=== PATIENT | male | born 1965 | race Caucasian/White ===

== ENCOUNTER 2019-10-31 21:56 | Emergency (ER) | payer MEDICAID, SELFPAY ==
[2019-10-31] VITALS (27 sets, daily range): BP systolic 124–245; BP diastolic 81–205; PULSE 113–149; RESP 13–44; O2SAT 58–88
--- NOTE | 2019-10-31 22:04 | DI.RAD_ITS ---
EXAM: XR PORTABLE CHEST AP INDICATION: CP/SOB. COMPARISON: No exams were available for comparison TECHNIQUE: 2D digital imaging was performed. FINDINGS: The heart size is within normal limits given the projection. There are bilateral diffuse interstitia l infiltrates present. No effusions or pneumothoraces are identified. The bones are unremarkable. IMPRESSION: Bilateral pulmonary infiltrates suggesting edema or infection.
[2019-10-31] MEDS: Furosemide 100 MG/10 ML VIAL 80 MG IVP (22:05)
[2019-10-31] MEDS: Albuterol 2.5 MG/3 ML INH SOLN VIAL (22:10)
[2019-10-31 22:12] LABS: Abs Immature Grans 0.03 k/cumm (0.0-0.09); Absolute Basophil Count 0.04 k/cumm (0.0-0.2); Absolute Eosinophil Count 0.41 k/cumm (0.0-0.7); Absolute Lymphocyte Count 2.83 k/cumm (1.2-3.4); Absolute Monocyte Count 0.87 k/cumm (0.11-0.7); Basophils % 0.4; Eosinophils % 3.8; HGB 13.5 g/dL (13.5-17.5); Immature Grans % 0.3 %; Lymphocytes % 26.5; Mean Corp. HGB Concentration 33.8 g/dL (32.0-36.0); Mean Corpuscular Hemoglobin 29.1 pg (27.0-33.0); Mean Corpuscular Volume 86.2 fL (80-95); Mean Platelet Volume 10.6 fL (8.0-11.0); Monocytes % 8.1; Neutrophils % 60.9; Platelet Count 196 x1000/uL (130-400); RBC 4.64 m/cumm (4.50-6.00); RBC Distribution Width 13.2 % (11.8-14.1); White Blood Cell Count 10.68 k/cumm (4.4-10.8)
--- NOTE | 2019-10-31 22:16 | DI.VRAD_ITS ---
PROCEDURE INFORMATION: Exam: XR Chest, 1 View Exam date and time: 10/31/2019 10:09 PM Age: 54 years old Clinical indication: Shortness of breath; Type not specified; Patient HX: SOB, severe chest pain TECHNIQUE: Imaging protocol: XR of the chest Views: 1 view. COMPARISON: No relevant prior studies available. FINDINGS: Lungs: Pulmonary infiltrates bilaterally suggesting edema or infection. Pleural space: Unremarkable. No pleural effusion. No pneumothorax. Heart/Mediastinum: Unremarkable. No cardiomegaly. Bones/joints: Unremarkable. IMPRESSION: Pulmonary infiltrates bilaterally suggesting edema or infection. Dictated and Authenticated by: Latia Melendez MD. Ordering:MATT Richardson MD
--- NOTE | 2019-10-31 22:19 | W.ED.GENAD ---
Discharge Plan Disposition Patient Disposition: [facility] Condition: Critical Discharge Details Chief Complaint: Chest Pain Clinical Impression: Flash pulmonary edema Primary Care Provider: James Juarez ED Provider: Dylan Parada Home Meds and New Rx's Prescriptions: No Action clindamycin HCl 150 MG capsule 450 mg PO DAILY Qty: 45 RF: 0 hydrochlorothiazide 12.5 MG tablet 12.5 mg PO DAILY RF: 0 clindamycin HCl 150 MG capsule 450 mg PO TID 7 Days RF: 0 Medical Decision Making 54-year-old male presents via EMS with the abrupt onset of dyspnea at home. He became agitated on route. He was given 325 mg of aspirin, 0.4 mg nitroglycerin, 2 mg Ativan. He arrives combative, hypertensive, dyspneic and unable to answer questions or speak in full sentences. He arrives hypertensive with blood pressure 241/135, tachycardic with a pulse of 148, tachypneic to the mid 30s and hypoxic on supplemental oxygen to 70%. Lung garcia are coarse with rales throughout. Concern for flash pulmonary edema, patient placed on marketing services coordinator, EKG was obtained, he was given 80 mg of Lasix and placed on a nitroglycerin drip. He continued to be combative and I made the decision to intubate the patient. He was given succinylcholine and etomidate intubated with an 8-0 ET tube. Laboratories reveal unremarkable CBC, chemistries with BUN 33, creatinine 2.1. Troponin 0.22, BNP 6865. Chest x-ray with diffuse pulmonary infiltrates bilaterally. Patient's vital signs improving although he remains critically ill. I discussed the case with Dr. Cabrera of [facility] cardiology and patient excepted in transfer via [facility]. (Please note patient's OG tube was repositioned after first attempt and evidence of it coiled in the esophagus on x-ray.) Lab Data Lab results reviewed: Yes I reviewed the patient's lab results. Labs: Laboratory Results - last 24 hr 10/31/19 10/31/19 10/31/19 21:45 21:45 21:45 WBC 10.68 RBC 4.64 Hgb 13.5 Hct 40.0 MCV 86.2 MCH 29.1 MCHC 33.8 RDW 13.2 Plt Count 196 MPV 10.6 Immature Gran % 0.3 Neutrophils % 60.9 Lymphocytes % 26.5 Monocytes % 8.1 Eosinophils % 3.8 Basophils % 0.4 Absolute Neutrophils 6.50 Absolute Lymphocytes 2.83 Absolute Monocytes 0.87 H Absolute Eosinophils 0.41 Absolute Basophils 0.04 PT 10.5 INR 1.0 APTT 36.1 H Sample Site pCO2 pO2 O2 Saturation ABG pH ABG HCO3 ABG Total CO2 ABG Base Excess Oxygen Liter Flow FiO2 Sodium 140 Potassium 4.1 Chloride 104 Carbon Dioxide 24.3 Anion Gap 11.7 H BUN 33 H Creatinine 2.10 H Estimated GFR/1.73 m2 32.95 Glucose 115 H Calcium 8.2 L Magnesium 2.0 Total Bilirubin 0.6 AST 32 ALT 41 Alkaline Phosphatase 105 Troponin I 0.22 H* NT-Pro-B Natriuret Pep 6865 H Total Protein 8.3 H Albumin 3.6 10/31/19 22:45 WBC RBC Hgb Hct MCV MCH MCHC RDW Plt Count MPV Immature Gran % Neutrophils % Lymphocytes % Monocytes % Eosinophils % Basophils % Absolute Neutrophils Absolute Lymphocytes Absolute Monocytes Absolute Eosinophils Absolute Basophils PT INR APTT Sample Site Right radial pCO2 65 H* pO2 54 L O2 Saturation 76 L ABG pH 7.14 L* ABG HCO3 22 ABG Total CO2 22 ABG Base Excess -6.7 L Oxygen Liter Flow A/c 15 vt500 FiO2 100% 8 peep Sodium Potassium Chloride Carbon Dioxide Anion Gap BUN Creatinine Estimated GFR/1.73 m2 Glucose Calcium Magnesium Total Bilirubin AST ALT Alkaline Phosphatase Troponin I NT-Pro-B Natriuret Pep Total Protein Albumin ECG Data Attestation: I personally reviewed and interpreted this ECG (s) as follows: Interpretation: EKG obtained at 2203 hrs. reveals sinus tachycardia with a rate of 144, the QRS is narrow, there is ST segment depression noted laterally, poor baseline HPI General Mode of arrival: EMS. Date/Time Provider Initiated Documentation: 10/31/19 21:58. Limitations to Documentation: altered mental status. Information obtained by: EMS. History of Present Illness 54 year old M presents to the emergency department with the chief complaint of Abrupt onset shortness of breath at home, brought by EMS in extreme distres, described as severe, Patient started experiencing this unknown Patient did receive the following treatments prior to arrival, other (Patient was given 325 mg aspirin, 0.4 mg sublingual nitroglycerin, 2 mg Ativan) Related Data Home Medications Medication Instructions Recorded Confirmed clindamycin HCl 450 mg PO TID 7 Days cap 06/11/17 06/26/17 hydrochlorothiazide 12.5 mg PO DAILY 06/11/17 06/26/17 clindamycin HCl 450 mg PO DAILY #45 [facility] 06/26/17 Previous Rx's Medication Instructions Recorded clindamycin HCl 450 mg PO TID 7 Days cap 06/11/17 clindamycin HCl 450 mg PO DAILY #45 [facility] 06/26/17 Allergies Allergy/AdvReac Type Severity Reaction Status Date / Time No Known Allergies Allergy Unverified 06/26/17 15:31 General Stated Complaint: Chest Pain STEVEN: 1 Review of Systems Unobtainable due to mental status PFSH Social History Do you feel safe in your relationship?: Yes Exam Narrative Exam Narrative: GEN: Combative, tachypneic HEAD: Normocephalic, atraumatic ENT: Mucous membranes moist, oropharynx unremarkable, External ear exam unremarkable EYES: PERRL, EOMI NECK: Full ROM, no ANTONIO, no menigismus CHEST/RESP: Nontender, rales throughout CARDIOVASCULAR: Regular and tachycardic, no murmur, rub elsa. 2+ Rad pulse bilateral ABDOMEN: Soft, nontender, no mass. +Bowel sounds EXT: Full ROM, no edema, no rash Neuro: Grossly normal neurologic exam, moves all 4 extremities, attempts to answer questions. Psych: Speech garbled, unable to assess affect Course Vital Signs Vital signs: Vital Signs Pulse 148 H 10/31/19 21:56 Respiratory Rate 25 H 10/31/19 21:56 Blood Pressure 241/135 H 10/31/19 21:56 Pulse Oximetry 80 L 10/31/19 21:56 Pulse 148 H 10/31/19 21:56 Respiratory Rate 25 H 10/31/19 21:56 Blood Pressure 241/135 H 10/31/19 21:56 Pulse Oximetry 80 L 10/31/19 21:56 Oxygen Delivery Method Non-Rebreather 10/31/19 21:56 Oxygen Flow Rate 10 10/31/19 21:56 Lab/Test Results Lab/Test Results: Laboratory Tests Range/Units 10/31/19 21:45 WBC (4.4-10.8) k/cumm 10.68 RBC (4.50-6.00) m/cumm 4.64 Hgb (13.5-17.5) g/dL 13.5 Hct (40.0-50.0) % 40.0 MCV (80-95) fL 86.2 MCH (27.0-33.0) pg 29.1 MCHC (32.0-36.0) g/dL 33.8 RDW (11.8-14.1) % 13.2 Plt Count (130-400) x1000/uL 196 MPV (8.0-11.0) fL 10.6 Immature Gran % % 0.3 Neutrophils % 60.9 Lymphocytes % 26.5 Monocytes % 8.1 Eosinophils % 3.8 Basophils % 0.4 Absolute Neutrophils (1.2-6.7) k/cumm 6.50 Absolute Lymphocytes (1.2-3.4) k/cumm 2.83 Absolute Monocytes (0.11-0.7) k/cumm 0.87 H Absolute Eosinophils (0.0-0.7) k/cumm 0.41 Absolute Basophils (0.0-0.2) k/cumm 0.04 Procedures Intubation Time out performed: Yes sedative: Etomidate paralytic: Succinylcholine Laryngoscope: Epi ET Tube Size: 8 ET Tube Uncuffed: Yes Tube Placement Confirmation: visualized tube passing through cords and equal breath sounds bilaterally Patient Tolerated Procedure: well Critical Care Time Critical Care Time Critical Care Time: Yes Total Critical Care Time: 60
[2019-10-31 22:26] LABS: ALT 41 U/L (16-63); AST 32 U/L (15-37); Albumin 3.6 g/dL (3.4-5.0); Alkaline Phosphatase 105 U/L (46-116); Anion Gap 11.7 mmol/L (3-11); BUN 33 mg/dL (7-18); Bilirubin, Total 0.6 mg/dL (0.2-1.0); CO2 24.3 mmol/L (21.0-32.0); Calcium 8.2 mg/dL (8.5-10.1); Chloride 104 mmol/L (98-107); Estimated GFR 32.95 (mL/min/1.73m2); Glucose 115 mg/dL (74-106); NT-proBNP 6865 pg/mL (<300); Potassium 4.1 mmol/L (3.5-5.1); Sodium 140 mmol/L (136-145); Total Protein 8.3 g/dL (6.4-8.2)
[2019-10-31 22:28] LABS: Troponin I 0.22 ng/Ml (<0.06)
[2019-10-31] MEDS: Succinylcholine 200 MG/10 ML VIAL 100 MG IVP (22:28)
[2019-10-31] MEDS: Etomidate 20 MG/10 ML VIAL IVP (22:28)
[2019-10-31 22:39] LABS: PTT Activated 36.1 sec (21.0-31.4); Prothrombin Time 10.5 sec (9.3-11.0)
--- NOTE | 2019-10-31 22:40 | DI.RAD_ITS ---
EXAM: XR PORTABLE CHEST AP POST LINE INDICATION: s/p intubation. COMPARISON: XR PORTABLE CHEST AP from 10/31/2019 TECHNIQUE: 2D digital imaging was performed. FINDINGS: Endotracheal tube tip is positioned above the saira in good position. There is a nasogastric tube w hich is coiled in the proximal esophagus. Tip is directed cephalad overlying the tracheal air shadow in the neck. Diffuse bilateral pulmonary infiltrates are again seen suggesting edema or pneumonia. Heart size is stable. IMPRESSION: 1. Endotracheal tube tip is in good position. 2. Nasogastric tube is coiled upon itself in the proximal esophagus. The tip is directed cephalad. 3. Bilateral pulmonary infiltrates which may reflect edema or infection.
[2019-10-31] MEDS: Heparin 5,000 UNITS/ML VIAL 4600 UNITS IV (22:54)
[2019-10-31 22:57] LABS: HCO3 22 mmol/L (22-28); pO2 54 mmHg (83-108); sO2 76 % (94-98); tCO2 22 mmol/L (22-29)
[2019-10-31 22:58] LABS: pH 7.14 (7.35-7.45)
[2019-10-31 22:59] LABS: BE -6.7 mmol/L (-3-3); Site Right Radial; pCO2 65 mmHg (34-47)
--- NOTE | 2019-10-31 23:02 | DI.VRAD_ITS ---
Addendum created by Latia Melendez MD on 10/31/2019 11:04:05 PM EST THIS REPORT CONTAINS FINDINGS THAT MAY BE CRITICAL TO PATIENT CARE. The findings were verbally communicated via telephone conference with TAY FLEMING at 11:03 PM EST on 10/31/2019. The findings were acknowledged and understood. Initial report created on 10/31/2019 11:01:51 PM EST PROCEDURE INFORMATION: Exam: XR Chest, 1 View Exam date and time: 10/31/2019 10:43 PM Age: 54 years old Clinical indication: Device placement; Patient HX: S/P intubation and og tube placement TECHNIQUE: Imaging protocol: XR of the chest Views: 1 view. COMPARISON: XR PORTABLE CHEST AP 10/31/2019 10:04 PM FINDINGS: Tubes, catheters and devices: NG tube coiled upon itself in the midesophagus and ends cephalad. ET tube is properly positioned. Lungs: Bilateral pulmonary infiltrates suggesting edema or infection. Pleural space: Unremarkable. No pleural effusion. No pneumothorax. Heart/Mediastinum: Unremarkable. No cardiomegaly. Bones/joints: Unremarkable. IMPRESSION: NG tube coiled upon itself in the midesophagus and ends cephalad. ET tube is properly positioned. Bilateral pulmonary infiltrates suggesting edema or infection. Dictated and Authenticated by: Latia Melendez MD. Ordering:MATT Richardson MD
[2019-10-31] MEDS: LORazepam 2 MG/ML VIAL 1 MG IVP (23:46)
[2019-11-01 00:17] VITALS: BP 134/81; PULSE 110; RESP 24; TEMP 37.2; O2SAT 86
--- NOTE | 2019-11-01 01:03 | NUR.NOTE ---
Nursing Note: below please find a narrative of events for this pt. 2220- nitro gtt titrated to 50 mcg/min per MD verbal order. 2227- time out performed at bedside with all member of intubation team. 2228- Etomidate 30 mg and 100 mg succhynolcholine given for RSI per MD verbal order. 222- Intubation by Dr. Parada- 8.0 ETT 24cm @ lip. SpO2 63%, on high flow cannula during intubation and hyper-oxygenated prior to intubation. ETCO2 32. 223- SPO2 74%, prolonged expiratory phase with bagging. Breath sounds diminished but symmetrical. 223- HR 127, SpO2 78%, ETCO2 41, continue bagging @ 100 % oxygen. 2234- Vent settings: RR18, TV 450, Peep 8, 100% FiO2. 2236- ECG obtained #2, KR RN 2237- OGT 16 Greenlandic inserted by BS RN, 52 CM @ lip. + air bolus auscultation, negative for gastric contents. Questionable placement. 2238- Propofol gtt @ 30 mcg/kg/min through RAC #20 nexxiva (inserted by VM RN). SpO2 78%, ETCO2 35- + chewing tube. 224- Portable CXR obtained. 2245- nitro gtt titrated to 100 mcg/min per verbal MD order. 2248- suctioning in line by RT 2248- ETT confirmed placement by Dr. Parada from CXR. OGT not confirmed. 2248- OGT position adjusted by BS RN, results in + gastric contents (verified through pH). 60 cm @ lip. 2251- 4 mg Morphine given IVP by EMERSON RN. 2252- ABG drawn by RT right radial. 2254- Heparin blous 5000 units, run @ 1000 units. Double verified verbal order by Dr. Parada, verified by BS RN and KR RN at bedside with MD. 2300- Shankar inserted by BS RN without trauma. No blood noted. Clear, straw colored urine resulting. 200 cc urine result. 2315- suctioning in line by BS RN 2330- suctioning in line and orally by BS RN with thick, frothy pink sputum resulting. 2346- 1 mg Lorazepam given IVP for sedation adjunct. 2348- [facility] arrival, assist staff members. All infusions continue with [facility] en route. SPO2 86%, 127/86 BP, pulse 110 on assist control @ 18, overbreathing to rate of 24. 0017- [facility] departure, report called to Alona CASTRO -[facility].
== END 2019-11-01 00:15 | disposition short-term general hospital (02) ==
LOC: ER 23:34
PROVIDERS: Emergency Provider Emergency Medicine; PCP General Practice
DX: J81.0 Acute pulmonary edema (principal); R07.9 Chest pain, unspecified; R45.1 Restlessness and agitation; R09.02 Hypoxemia; R03.0 Elevated blood-pressure reading, without diagnosis of hypertension; R00.0 Tachycardia, unspecified; R06.82 Tachypnea, not elsewhere classified
CPT/HCPCS: 31500; 36415; 51702; 71045; 80053; 82805; 93005; 94640; 96365; 96366; 96375; 99291; 83735; 83880; 84484; 85025; 85610; 85730; 93010; J1644; J1940; J2060; J7613

== ENCOUNTER 2019-12-10 10:09 | Outpatient (CLI) | payer MEDICAID, SELFPAY ==
[2019-12-10 12:05] LABS: ALT 22 U/L (16-63); AST 22 U/L (15-37); Albumin 3.3 g/dL (3.4-5.0); Alkaline Phosphatase 119 U/L (46-116); Anion Gap 7.9 mmol/L (3-11); BUN 31 mg/dL (7-18); Bilirubin, Total 0.4 mg/dL (0.2-1.0); CO2 28.1 mmol/L (21.0-32.0); Calcium 8.3 mg/dL (8.5-10.1); Chloride 101 mmol/L (98-107); Creatine Kinase 159 U/L (39-308); Estimated GFR 39.37 (mL/min/1.73m2); Glucose 97 mg/dL (74-106); Magnesium 1.8 mg/dL (1.8-2.4); NT-proBNP 2222 pg/mL (<300); Potassium 4.2 mmol/L (3.5-5.1); Sodium 137 mmol/L (136-145); Total Protein 7.2 g/dL (6.4-8.2)
== END 2019-12-10 10:29 ==
PROVIDERS: PCP Nurse Practitioner Adult Health; Visit Provider Nurse Practitioner Adult Health
DX: I10 Essential (primary) hypertension (principal); I50.20 Unspecified systolic (congestive) heart failure; N18.9 Chronic kidney disease, unspecified; N28.89 Other specified disorders of kidney and ureter
CPT/HCPCS: 36415; 80053; 82550; 83735; 83880

== ENCOUNTER 2019-12-20 12:31 | Outpatient (CLI) | payer MEDICAID, SELFPAY ==
[2019-12-20 14:08] LABS: Anion Gap 5.7 mmol/L (3-11); BUN 27 mg/dL (7-18); CO2 30.3 mmol/L (21.0-32.0); CREATININE 1.79 mg/dL (0.70-1.30); Calcium 8.8 mg/dL (8.5-10.1); Chloride 103 mmol/L (98-107); Estimated GFR 39.62 (mL/min/1.73m2); Glucose 104 mg/dL (74-106); NT-proBNP 1098 pg/mL (<300); Potassium 4.1 mmol/L (3.5-5.1); Sodium 139 mmol/L (136-145)
== END 2019-12-20 12:51 ==
PROVIDERS: PCP Nurse Practitioner Adult Health; Visit Provider Nurse Practitioner Adult Health
DX: I50.20 Unspecified systolic (congestive) heart failure (principal); I42.8 Other cardiomyopathies; I10 Essential (primary) hypertension
CPT/HCPCS: 36415; 80048; 83880

== ENCOUNTER 2020-02-28 02:20 | Outpatient (CLI) | payer OTHER, MEDICAID, SELFPAY ==
--- NOTE | 2020-02-28 08:20 | DI.CT_ITS ---
EXAM: CT ABDOMEN PELVIS WO CLINICAL HISTORY: adrenal pathology in setting of elevated MTN, R79.89 TECHNIQUE: CT examination of the abdomen and pelvis was performed with oral contrast administration only due to impaired renal function. COMPARISON: No exams were available for comparison FINDINGS: Images obtained through the lung bases are unremarkable except for mild scarring. There is spondylolysis of L5 on the left without associated spondylolisthesis. Mild degenerative tatyana nges of the lumbar spine noted. The liver and spleen are unremarkable by noncontrast appearance. Pancreatic head is poorly delineate d, enlargement of the pancreatic head is not excluded. The gallbladder and bile ducts are CT normal. There is suggestion of gastric antral wall thickening and wall thickening at the level of the pylorus , additional evaluation with endoscopy should be considered to exclude neoplastic process. Abdominal aorta is of normal diameter. No gross abdominal or pelvic adenopathy seen. No significant abdominal wall hernia seen. Adrenals appear normal bilaterally by noncontrast criteria. Kidneys are unremarkable, no hydronephro sis or nephrolithiasis. Appendix is normal. No evidence of diverticulitis or bowel obstruction. There is suggestion of mild urinary bladder wall thickening, this could be secondary to bladder outle t obstruction versus cystitis. IMPRESSION: Focal gastric wall thickening involving distal antrum and pyloric region, neoplastic disease not excl uded. Correlation with endoscopy recommended. Poor delineation of pancreatic head, pancreatic head mass not excluded. Correlation with pancreatic protocol MRI recommended. Mild urinary bladder wall thickening, nonspecific, chronic bladder outlet obstruction versus cystitis , please correlate clinically.
[2020-02-28 08:58] LABS: CREATININE 2.48 mg/dL (0.70-1.30)
== END 2020-02-28 02:40 ==
PROVIDERS: PCP Nurse Practitioner Adult Health; Visit Provider Internal Medicine Cardiovascular Disease
DX: E27.8 Other specified disorders of adrenal gland (principal); K31.89 Other diseases of stomach and duodenum; K86.89 Other specified diseases of pancreas; N32.89 Other specified disorders of bladder; R79.89 Other specified abnormal findings of blood chemistry; I10 Essential (primary) hypertension
CPT/HCPCS: 74176; 82565

== ENCOUNTER 2020-03-21 01:07 | Outpatient (CLI) | payer OTHER, MEDICAID, SELFPAY ==
--- NOTE | 2020-03-21 09:01 | DI.US_ITS ---
APPROVED REPORT EXAM: Comprehensive 2D, Doppler, and color-flow Echocardiogram Patient Location: Out-Patient Lightning Rod Erector: Angélica Penaloza RDCS (AE) Indications: Heart Failure, Non Ischemic Cardiomyopathy Other Information Study Quality: Adequate Conclusion Left Ventricle : The left ventricle is normal size. Left ventricular systolic function is mildly decr eased. There is normal left ventricular wall thickness. Diastolic function is indeterminate. LVEF is 44%. There is mild global hypokinesis of the left ventricle. Right Ventricle : The right ventricle is normal size. The right ventricular systolic function is norm al. Atria : The left atrium size is normal. The right atrium size is normal. Mitral Valve : Mild mitral annular calcification. No evidence of mitral valve stenosis. Mild mitral r egurgitation. Great Vessels : IVC is normal in size and collapses >50% with inspiration. Compared to echocardiogram from 11/01/2019 at [facility], the patient's ejection fraction has increased from 28% to 44% and his mitral regurgitation has decreased from moderate to mild. Wall motion Left Ventricle The left ventricle is normal size. Left ventricular systolic function is mildly decreased. There is n ormal left ventricular wall thickness. There is mild global hypokinesis of the left ventricle. Diasto lic function is indeterminate. There is no ventricular septal defect visualized. LVEF is 44%. Right Ventricle The right ventricle is normal size. The right ventricular systolic function is normal. Atria The left atrium size is normal. The right atrium size is normal. Aortic Valve The Aortic valve is sclerotic. There is no aortic valvular stenosis. No aortic regurgitation is prese nt. Mitral Valve Mild mitral annular calcification. No evidence of mitral valve stenosis. Mild mitral regurgitation. Tricuspid Valve The tricuspid valve is normal in structure. There is no tricuspid valve stenosis. Trace tricuspid reg urgitation. Pulmonic Valve The pulmonary valve is normal in structure. There is no pulmonic valvular stenosis. There is no pulmo mat valvular regurgitation. Great Vessels The aortic root is normal in size. Ascending aorta is not well visualized. IVC is normal in size and collapses >50% with inspiration. Pericardium There is no pericardial effusion. 2D Dimensions IVSD d PLAX 1.00 cm M: 0.6-1.2 LV Vol A2C d MOD 182.0 mL LVPW d PLAX 1.00 cm M: 0.6 - 1.2 LV Vol A4C d MOD 154.0 mL LVID d PLAX 5.19 cm M: 4.2 - 5.8 LV Mass 107.50 g M: 88 - 224 LVDs 4.14 cm M: 2.5 - 4.0 LV Mass Index 59.39 g/m2 M: 49 - 115 Ao Root d 2.74 cm M: 3.1 - 3.7 LA vol/ BSA A2C s A-L 35.9 mL/m2 RA Area A4C 12.17 cm2 LA vol/ BSA A4C s A-L 30.6 mL/m2 RA Vol/ BSA A4C s A-L 18.4 mL/m2 LA Volume Biplane 35.40 mL LV EF Teichholz 41.0 % LA Vol/ BSA Biplane s A-L 33.7 mL/m2 LVEF (Sharma's) 43.40 % M: 52 - 72 LA Area A4C s MOD 17.99 cm2 CO 4.09 mL/min LA Area A2C s MOD 19.12 cm2 FS 20.20 % LV EF A4C MOD 44.3 % LV EF A2C MOD 43.7 % LV EF Biplane MOD 43.4 % SV 75.20 mL SV Index 41.49 mL/m2 M-Mode TAPSE 1.96 cm (M/F) >1.7 LV Diastology E Decel Time 322.00 (160-240 msec) E/A Ratio 0.8 MV E' medial 0.058 (>0.07 m/s) MV E Vmax 0.69 (0.4-1.3 m/s) MV E' lateral 0.106 (>0.1 m/s) MV A Vmax 0.82 (0.4-1.3 m/s) MV E/E' medial 12.00 MV E/A Ratio 0.85 MV E/E' lateral 6.55 Aortic Valve LVOT Area 3.28 cm2 JULY 2.97 cm2 LVOT Vmax 1.02 m/s JULY Index 1.45 cm2/m2 LVOT Mean Francis. 0.60 m/s AoV Area Vmax 2.97 cm2 LVOT Peak Grad 4.1 mmHg AoV Area/ BSA (Vmax) 1.64 cm2/m2 LVOT Mean Grad 1.7 mmHg JULY Mean Francis. 2.40 cm2 LVOT VTI 0.017 m JULY Mean Francis. Index 1.33 cm2/m2 LVOT Diam s 2.04 cm AoV Vmax 1.12 m/s Velocity Ratio 0.91 AoV Mean Francis. 0.82 m/s AoV Peak Grad 5.1 mmHg LVOT SV 55.73 mL AoV Mean Grad 2.9 mmHg AoV VTI 0.211 m AoV Area VTI 2.64 cm2 AoV Area/ BSA (VTI) 1.45 cm/m2 Mitral Valve MV DT 322 (160-240 msec) MV PHT 94 msec MV Area PHT 2.35 cm2 Pulmonary Valve PV Vmax 0.61 (0.5-1.5 m/s) RVOT Peak Gr. 1.80 mmHg PV Peak Grad 1.5 mmHg RVOT Mean Gr. 0.90 mmHg PV VTI 0.104 m RVOT VTI 0.120 m RVOT Vmax 0.67 m/s
== END 2020-03-21 01:27 ==
PROVIDERS: PCP Nurse Practitioner Adult Health; Visit Provider Internal Medicine Cardiovascular Disease
DX: I42.8 Other cardiomyopathies (principal); I50.89 Other heart failure; I10 Essential (primary) hypertension
CPT/HCPCS: 93306

== ENCOUNTER 2020-06-26 15:02 | Emergency (ER) | payer MEDICAID, SELFPAY ==
[2020-06-26 15:05] VITALS: BP 100/64; PULSE 92; RESP 18; TEMP 36.6; O2SAT 98
--- NOTE | 2020-06-26 15:46 | W.ED.GENAD ---
Discharge Plan Disposition Patient Disposition: HOME Condition: Stable Discharge Details Clinical Impression: Inguinal hernia Primary Care Provider: Janneth Collins ED Provider: Gilberto Woods Home Meds and New Rx's Prescriptions: Continued lisinopril 10 mg tablet 10 mg PO DAILY Qty: 90 RF: 5 carvedilol 6.25 mg tablet 6.25 mg PO BID Qty: 180 RF: 3 furosemide 20 mg tablet 20 mg PO .Daily in AM Qty: 90 RF: 3 amlodipine 10 mg tablet 10 mg PO DAILY Qty: 90 RF: 3 atorvastatin 80 mg tablet 80 mg PO QHS Qty: 90 RF: 3 aspirin 81 mg tablet,chewable 81 mg PO DAILY Qty: 90 RF: 3 Discharge Instructions Instructions: Inguinal Hernia (ED) Additional Instructions: As we discussed you have an inguinal hernia that will need elective repair at this time is easily reduced. If you are unable to reduce the hernia you will need to return immediately to the ER. Otherwise I am giving you the name and number of our local surgical team who I recommend you contact later tomorrow for prompt outpatient reevaluation. Referrals: Soledad Singh MD [ [facility]FF [facility]YSICIAN] - Discharge Data Discharge Date/Time-TO BE ENTERED AT DEPARTURE: 06/26/20 16:17 Medical Decision Making This is a 55-year-old gentleman with history of CKD, cardiomyopathy, hypertension, presenting to the ER today via EMS for evaluation of sudden onset left groin pain and a popping sensation that occurred while he was speckling his house. Pain was initially 10 out of 10 however upon lying flat in the ambulance he felt the bulge to get smaller and his pain got dramatically better. He reports the pain was a 4 out of 10 but is now a small dull ache, only 2 out of 10. Clinically he appears well, nontoxic. He has a left inguinal hernia that is easily reduced. No evidence of strangulation or incarceration. Abdomen, back, penis, testicles, scrotum unremarkable. We had a long discussion regarding hernias, incarceration and strangulation, the need for elective versus surgical surgery. At this time his pain is a 2 out of 10, his hernia is soft, easily reduced. No evidence of strangulation or incarceration. I do not believe that laboratory values will change the outcome of his ER visit. We discussed the importance of outpatient surgical reevaluation and signs and symptoms to which return immediately to the ER. We discussed that lifting objects, straining to have a bowel movement, other maneuvers to increase intra-abdominal pressure will likely make his symptoms worse. Patient has no additional questions or concerns and is comfortable discharge at this time. I have placed him on the surgical list and he will contact them later today or tomorrow for prompt outpatient reevaluation. Medical Records Medical records reviewed: Yes I reviewed the patient's medical records. HPI General Mode of arrival: EMS. Date/Time Provider Initiated Documentation: 06/26/20 15:13. Limitations to Documentation: no limitations. Information obtained by: patient. HPI Narrative: 55 year old gentleman arrive to the ER via EMS for sudden 10/10 pain and a bulge in his left groin that occurred while spackling at home. He heard/felt a pop. He was not lifting heavily at the time. Denies any other symptoms. Pain medications were not given via EMS. Once he laid flat in the ambulance his pain decreased to a 2/10 ache or throb and the bulge decreased greatly. He has never had anything like this before. Pt with a PMH of heart failure, Htn, flash pulmonary edema, CKD, cardiomyopathy. Denies fever, chest pain, sob, abd pain, N/V/D, back pain, dysuria, hematuria, penile pain/discharge, pain or swelling in his scotum or testicles. Related Data Home Medications Medication Instructions Recorded Confirmed carvedilol 6.25 mg tablet 6.25 mg PO BID #180 tab 01/02/20 06/26/20 furosemide 20 mg tablet 20 mg PO .Daily in AM #90 tab 01/02/20 06/26/20 amlodipine 10 mg tablet 10 mg PO DAILY #90 tab 01/03/20 06/26/20 aspirin 81 mg chewable tablet 81 mg PO DAILY #90 tab 01/03/20 06/26/20 atorvastatin 80 mg tablet 80 mg PO QHS #90 tab 01/03/20 06/26/20 lisinopril 10 mg tablet 10 mg PO DAILY #90 tab 04/19/20 06/26/20 Previous Rx's Medication Instructions Recorded carvedilol 6.25 mg tablet 6.25 mg PO BID #180 tab 01/02/20 furosemide 20 mg tablet 20 mg PO .Daily in AM #90 tab 01/02/20 amlodipine 10 mg tablet 10 mg PO DAILY #90 tab 01/03/20 aspirin 81 mg chewable tablet 81 mg PO DAILY #90 tab 01/03/20 atorvastatin 80 mg tablet 80 mg PO QHS #90 tab 01/03/20 lisinopril 10 mg tablet 10 mg PO DAILY #90 tab 04/19/20 Allergies Allergy/AdvReac Type Severity Reaction Status Date / Time No Known Allergies Allergy Unverified 06/26/20 15:08 General Stated Complaint: GenMedical STEVEN: 3 Review of Systems Constitutional Constitutional: Denies fever(s) Cardiovascular Cardiovascular: Denies chest pain and Denies dyspnea Respiratory Respiratory: Denies dyspnea Gastrointestinal Gastrointestinal: Denies abdominal pain, Denies constipation, Denies diarrhea, Denies nausea and Denies vomiting Genitourinary Genitourinary: Denies difficulty urinating, Denies genital pain, Denies scrotal swelling, Denies testicular mass, Denies testicular pain, Denies urinary frequency and Reports other (Groin pain) Musculoskeletal Musculoskeletal: Denies back pain, Denies numbness and Denies tingling Integumentary/Breasts Skin/Breast: Denies rash Neurologic Neurologic: Denies numbness and Denies tingling [facility] Medical History Elevated plasma metanephrines [facility] [place] 10/2019 Flash pulmonary edema [facility] [place] admission Heart failure with reduced ejection fraction ECHO 11/01/2019 [facility] [place] LVEF 28% & mod MR History of respiratory failure [facility] [place] 10/2019 Hypertension Nephropathy Hypertensive--with renal insufficiency (Creatinine 2.1) and non-nephrotic proteinuria (439mg) Nicotine use disorder Nonischemic cardiomyopathy [facility] [place] 10/2019 Paronychia (~05/2017) Surgical History History of cardiac cath [facility] [place] 10/2019--neg Family History Mother Breast cancer Father Unknown family medical history Social History Smoking/Tobacco Use Status: Current every day Alcohol Intake: current Alcohol Intake frequency: holidays/special occasions only Alcohol type: beer and wine Drug use: Rarely Substance use type: marijuana Adopted: No Caregiver/Support person: Yes Foster care: No Household members: family Housing: house Number of Children: 2 Do you need help understanding health information?: Often current occupation: [employer] Sexually active: Yes Do you think of yourself as: straight/heterosexual Current gender identity: male Other: no siblings What type of physical activity do you participate in: walking Do you feel safe at home: Yes Do you feel safe in your relationship?: Yes Exam Const General: cooperative, healthy appearing, comfortable and no acute distress Orientation: alert and awake [facility] Head: normal to inspection, normocephalic and atraumatic Mouth: moist mucous membranes Eyes Conjunctivae: conjunctivae normal Sclera: sclerae normal Neck Neck: normal visual inspection, full ROM, trachea midline and supple Resp Effort & Inspection: normal respiratory effort and able to speak in complete sentences Auscultation: clear to auscultation bilaterally Cardio Rate: regular rate Rhythm: regular rhythm GI Inspection: normal to inspection Palpation: soft, not firm, no guarding and nontender Auscultation: bowels sounds not normal Male General Exam: Yes hernia (Left inguinal, examined standing and lying flat) Penis: normal penis Meatus: meatus normal Scrotum: scrotum normal Testes: normal Other: Patient has a visible left inguinal hernia that is made worse with standing or with bearing down. The hernia is minimally tender to palpation. It is easily reduced. No evidence of strangulation or incarceration. Back/Spine/Pelvis Back: no CVA tenderness and No back tenderness Skin General skin exam: no rashes or lesions noted Neuro General: patient alert, patient awake, moves all extremities and no focal motor deficits Gait: normal gait Motor: muscle tone normal throughout Sensory Exam: no sensory deficits noted Extrem General: normal to inspection and full ROM Psych Appearance: grossly normal Mental Status: mental status grossly normal Course Vital Signs Vital signs: Vital Signs Temperature 36.6 C 06/26/20 15:05 Pulse 92 H 06/26/20 15:05 Respiratory Rate 18 06/26/20 15:05 Blood Pressure 100/64 06/26/20 15:05 Pulse Oximetry 98 06/26/20 15:05 Temperature 36.6 C 06/26/20 15:05 Temperature Source Tympanic 06/26/20 15:05 Pulse 92 H 06/26/20 15:05 Respiratory Rate 18 06/26/20 15:05 Respiratory Effort Non-Labored 06/26/20 15:08 Blood Pressure 100/64 06/26/20 15:05 Blood Pressure Position Sitting 06/26/20 15:05 Pulse Oximetry 98 06/26/20 15:05 Oxygen Delivery Method Room Air 06/26/20 15:05 Oxygen Flow Rate 0 06/26/20 15:05 Pain Level 2 06/26/20 15:05
[2020-06-26 16:15] VITALS: BP 106/60; PULSE 68; RESP 15; O2SAT 95
--- NOTE | 2020-06-26 17:00 | NUR.NOTE ---
Nursing Note: Referral to [facility] was faxed for follow up ERIKA. Mamie Fontana
== END 2020-06-26 16:17 | disposition home or self-care (01) ==
PROVIDERS: Emergency Provider Physician Assistant; PCP Nurse Practitioner Adult Health
DX: K40.90 Unilateral inguinal hernia, without obstruction or gangrene, not specified as recurrent (principal); I12.9 Hypertensive chronic kidney disease with stage 1 through stage 4 chronic kidney disease, or unspecified chronic kidney disease; N18.9 Chronic kidney disease, unspecified
CPT/HCPCS: 99283

== ENCOUNTER 2020-06-27 19:28 | Outpatient (REF) | payer MEDICAID, SELFPAY ==
[2020-06-30 12:43] LABS: Fecal Immunochemical Test Negative (Negative)
== END 2020-06-27 19:48 ==
LOC: LBN 19:28
PROVIDERS: PCP Nurse Practitioner Adult Health; Visit Provider Nurse Practitioner Adult Health
DX: Z12.11 Encounter for screening for malignant neoplasm of colon (principal); Z86.010 Personal history of colon polyps
CPT/HCPCS: 82274

== ENCOUNTER 2020-09-05 14:24 | Outpatient (REF) | payer OTHER, MEDICAID, SELFPAY ==
[2020-09-05 21:05] LABS: BUN 47 mg/dL (7-18); CREATININE 2.15 mg/dL (0.70-1.30); Calcium 8.4 mg/dL (8.5-10.1); Chloride 103 mmol/L (98-107); Estimated GFR 31.95 (mL/min/1.73m2); Glucose 106 mg/dL (74-106); Potassium 4.7 mmol/L (3.5-5.1); Sodium 139 mmol/L (136-145)
== END 2020-09-05 14:44 ==
LOC: LBO 14:24
PROVIDERS: PCP Nurse Practitioner Adult Health; Visit Provider Nurse Practitioner Adult Health
DX: N18.9 Chronic kidney disease, unspecified (principal)
CPT/HCPCS: 80048

== ENCOUNTER 2023-01-15 00:39 | Emergency (ER) | payer MEDICAID, SELFPAY ==
[2023-01-15] VITALS (24 sets, daily range): BP systolic 89–223; BP diastolic 62–137; PULSE 78–135; RESP 14–36; TEMP 36.4; O2SAT 86–97
--- NOTE | 2023-01-15 00:30 | RT.EKG_ITS ---
APPROVED REPORT Exam: Resting ECG Reason for Exam: sob Patient Location: E HR:120 bpm ECG Measurements Heart Rate 120 AXIS MN 140 P 64 QRSd 90 QRS 64 QT 352 T 256 QTc 498 Conclusion Sinus tachycardia...rate> 99 Left atrial enlargement...P, P'>60mS, <-0.15mV V1 Consider anteroseptal infarct...Q >30mS, dimin R, V1-V2 Nonspecific repol abnormality, lateral leads...ST dep, T neg, I aVL V5 V6 Physician: mild elevation in V1 and V2, minimal [id number] in lateral leads. Does not meet STEMI crit melissa
--- NOTE | 2023-01-15 00:30 | RT.EKG_ITS ---
APPROVED REPORT Exam: Resting ECG Reason for Exam: Difficulty Breathing Patient Location: E HR:133 bpm ECG Measurements Heart Rate 133 AXIS AR 150 P 53 QRSd 100 QRS 59 QT 370 T 173 QTc 551 Conclusion Sinus tachycardia...rate> 99 Paired ventricular premature complexes...sequence of 2 V complexes Left atrial enlargement...P, P'>60mS, <-0.15mV V1 Repol abnrm suggests ischemia, diffuse leads...ST-T neg, ant/lat/inf Prolonged QT interval...QTc >500mS Physician: diffuse artifact secondary to patients resp distress
[2023-01-15] MEDS: Furosemide 20 MG/2 ML VIAL ×2 (00:42→01:13)
[2023-01-15] MEDS: Albuterol/Ipratropium 3 ML UPD VIAL ×2 (00:45→00:55)
[2023-01-15 00:55] LABS: Abs Immature Grans 0.17 10^3/uL (0.0-0.06); Absolute Eosinophil Count 0.48 10^3/uL (0.0-0.7); Absolute Lymphocyte Count 4.04 10^3/uL (1.2-3.4); BE (Venous) -8 mmol/L (-2-3); Basophils % 0.7; Eosinophils % 2.9; HCO3 (Venous) 21 mmol/L (23-28); HCT 44.4 % (40.0-50.0); Lymphocytes % 24.3; MCH 29.8 pg (27.0-33.0); MCHC 33.8 % (32.0-36.0); MCV 88 fL (80-95); MPV 10.2 fL (8.0-11.0); Monocytes % 3.7; Neutrophils % 67.4; O2 Sat (Venous) 35 %; Platelet Count 235 10^3/uL (130-400); RBC 5.04 10^6/uL (4.36-5.78); RDW 12.7 % (11.8-14.1); TCO2 (Venous) 21 mmol/L (24-29); WBC 16.61 10^3/uL (4.4-10.8); pO2 (Venous) 27 mmHg
[2023-01-15 00:58] LABS: pCO2 (Venous) 67 mmHg (41-51); pH (Venous) 7.11 (7.31-7.41)
[2023-01-15] MEDS: nitroGLYcerin in D5W 50 MG/250 ML BTL 30 MG IV (00:58)
[2023-01-15 00:59] LABS: Absolute Basophil Count 0.12 10^3/uL (0.0-0.2); Absolute Monocyte Count 0.61 10^3/uL (0.1-0.8)
--- NOTE | 2023-01-15 01:00 | DI.RAD_ITS ---
Exam(s) XR PORTABLE CHEST AP EXAM: XR PORTABLE CHEST AP CLINICAL HISTORY: chf. hypoxic resp failure TECHNIQUE: 2D digital imaging was performed. COMPARISON: CR,XR XR PORTABLE CHEST AP from 10/31/2019 CR,XR XR PORTABLE CHEST AP POST LINE from 10/31/[address] ABDOMEN PELVIS WO from 02/28/2020 FINDINGS: LUNGS: Bilateral diffuse interstitial infiltrates were noted on the prior examinations. There are no w bilateral diffuse interstitial infiltrates as well as superimposed airspace disease in the right up per and lower lobes. . No pleural abnormality seen. HEART: Normal size. AORTA: Normal diameter. BONES: Unremarkable for age. Soft tissues: Unremarkable. IMPRESSION: Bilateral infiltrates, right greater than left. DATA REPOSITORY: RADIATION DOSE DELIVERED:
[2023-01-15 01:08] LABS: INR 1.1 (0.9-1.1); PTT Activated 33.8 sec (21.5-31.9); Prothrombin Time 11.1 sec (9.3-11.0)
[2023-01-15] MEDS: nitroGLYcerin 0.4 MG TAB (01:12)
[2023-01-15 01:20] LABS: ALT 36 U/L (16-63); AST 38 U/L (15-37); Albumin 3.8 g/dL (3.4-5.0); Alkaline Phosphatase 93 U/L (46-116); Anion Gap 12.3 mmol/L (3-11); BUN 43 mg/dL (7-18); Bilirubin, Total 0.6 mg/dL (0.2-1.0); CO2 23.7 mmol/L (21.0-32.0); CREATININE 2.9 mg/dL (0.70-1.30); Calcium 8.5 mg/dL (8.5-10.1); Chloride 103 mmol/L (98-107); Estimated GFR 24.31 (mL/min/1.73m2); Glucose 260 mg/dL (74-106); NT-proBNP 8689 pg/mL (<300); Potassium 3.4 mmol/L (3.5-5.1); Sodium 139 mmol/L (136-145); Total Protein 8.7 g/dL (6.4-8.2)
--- NOTE | 2023-01-15 01:20 | ED.GENADUL_ITS ---
Discharge Plan Disposition Patient Disposition: Transfer-Acute Inpatient Care Specific Acute Inpt Facility: [facility] Condition: Critical Discharge Details Clinical Impression: Flash pulmonary edema, Acute respiratory failure Primary Care Provider: Janneth Collins ED Provider: Maximus Thorne Home Meds and New Rx's Prescriptions: No Action amlodipine 10 mg tablet 10 mg PO DAILY Qty: 90 3RF Rx Instructions: Blood pressure, heart aspirin 81 mg tablet,chewable 81 mg PO DAILY Qty: 90 3RF atorvastatin 80 mg tablet 80 mg PO QHS Qty: 90 3RF carvedilol 6.25 mg tablet 6.25 mg PO BID Qty: 180 3RF Rx Instructions: Blood pressure & heart furosemide 20 mg tablet 20 mg PO .Daily in AM Qty: 90 3RF Rx Instructions: Diuretic for swelling and heart lisinopril 10 mg tablet 10 mg PO DAILY Qty: 90 5RF Medical Decision Making 57-year-old male with a past medical history of CKD, nonischemic cardiomyopathy, heart failure, hypertension, presents today for evaluation of shortness of breath. History is limited secondary to patient's respiratory di stress. Allegedly this evening the patient woke up out of bed extremely short of breath. reports that he has not been taking his Lasix for the last few days. We do not know any additional specifics in regards to this. He has been taking his other meds though per family. Patient was not able to tell anything else to EMS. On EMS arrival the patient was ashen diallo, with severe respiratory distress. He was placed on a nonrebreather mask, and immediately brought to the ER. Upon arrival patient was noted to be in the 50s for O2 saturations on maximum oxygen flow on the nonrebreather. He denies any chest pain, but he is not able to report much else. No other complaints at this time. Exam demonstrates a notable respiratory distress. Oxygenation is in the 50s. Bedside echo was performed and demonstrates an EF that appears to be around 15%. Diffuse B-lines throughout the entirety of his lungs. Blood pressure notably elevated in the 200s systolic. Concern for flash pulmonary edema. And severe CHF. Respiratory therapy was about 15 minutes out when the patient arrived. I did have nursing staff start BiPAP, nitroglycerin and Lasix while I set up for intubation. However after the patient had been on the BiPAP for a few minutes when I was done prepping for the intubation his symptoms had improved. Oxygen climbed to 91% on 100% FiO2, patient became less ashen in color, and looked to have some clinical improvement. We will hold off on intubation for the meantime. We will start nitro drip at 100 to 200 mcg/min. We will give 40 of Lasix IV, will give 1 sublingual nitroglycerin, will evaluate for other concerning etiologies. Will monitor closely and reassess. We have no current ICU level beds or MedSur beds for that matter here at [facility]. We will reach out to [facility] for potential transfer. 1:56 AM Patient remained stable on BiPAP. Blood pressure has come down to 112 systolic, will slightly titrate down the nitroglycerin from 200-150. We have given an additional 40 mg of Lasix IV. Patient is producing urine. He has produced about 250 cc so far. I did speak with Dr. Macias at [facility], and he agrees with the need for transfer and accepts the patient for transfer to the cardiac ICU. Patient will be admitted under Dr. Roy. I did contact the patient's and discussed the case with her(Lolis). Answered all of her questions. Patient will be transferred via the electrical manager unit of [facility]. I have extensively reviewed the treatment plan with the patient. I have addressed all patient concerns at this time. I have also discussed the plan with the admitting physician and they agree with the current assessment and plan and have agreed to assume responsibility for the patient. All parties demonstrate verbal understanding and agreement with our assessment and plan at this time. The documentation in this chart was dictated using [employer] dictation software. Please excuse any dictation errors. Of note patient's Lolis requests to be called with updates as she has a son with Down syndrome and cannot leave the home. Her phone number is [phone]. Also of note repeat EKG was performed and does not show evidence of STEMI. There is some lateral ST depressions. HPI General Date/Time Provider Initiated Documentation: 01/15/23 01:04 . HPI Narrative: 57-year-old male with a past medical history of CKD, nonischemic cardiomyopathy, heart failure, hypertension, presents today for evaluation of shortness of breath. History is limited secondary to patient's respiratory distress. Allegedly this evening the patient woke up out of bed extremely short of breath. reports that he has not been taking his Lasix for the last few days. We do not know any additional specifics in regards to this. He has been taking his other meds though per family. Patient was not able to tell anything else to EMS. On EMS arrival the patient was ashen diallo, with severe respiratory distress. He was placed on a nonrebreather mask, and immediately brought to the ER. Upon arrival patient was noted to be in the 50s for O2 saturations on maximum oxygen flow on the nonrebreather. He denies any chest pain, but he is not able to report much else. No other complaints at this time. Related Data Home Medications Medication Instructions Recorded Confirmed amlodipine 10 mg tablet 10 mg PO DAILY #90 tabs 11/19/20 aspirin 81 mg chewable tablet 81 mg PO DAILY #90 tabs 11/19/20 atorvastatin 80 mg tablet 80 mg PO QHS #90 tabs 11/19/20 carvedilol 6.25 mg tablet 6.25 mg PO BID #180 tabs 11/19/20 furosemide 20 mg tablet 20 mg PO .Daily in AM #90 tabs 11/19/20 lisinopril 10 mg tablet 10 mg PO DAILY #90 tabs 11/19/20 Previous Rx's Medication Instructions Recorded amlodipine 10 mg tablet 10 mg PO DAILY #90 tabs 11/19/20 aspirin 81 mg chewable tablet 81 mg PO DAILY #90 tabs 11/19/20 atorvastatin 80 mg tablet 80 mg PO QHS #90 tabs 11/19/20 carvedilol 6.25 mg tablet 6.25 mg PO BID #180 tabs 11/19/20 furosemide 20 mg tablet 20 mg PO .Daily in AM #90 tabs 11/19/20 lisinopril 10 mg tablet 10 mg PO DAILY #90 tabs 11/19/20 Allergies Allergy/AdvReac Type Severity Reaction Status Date / Time No Known Allergies Allergy Verified 09/05/20 12:45 General Stated Complaint: SOB/SuddenOnset STEVEN: 2 Review of Systems All systems reviewed & are unremarkable except as noted in HPI and below PFSH All Active Problems (Updated 01/15/23 @ 01:59 by Maximus Thorne DO) Flash pulmonary edema (Acute) Acute respiratory failure (Acute) Gastric wall thickening (Acute) Referred to GI 05/2020 (not addressed & pt didn't f/u; declined f/u 08/2020 OV) Bladder wall thickening (Acute) CT; 02/2020 bladder outlet syndrome? Screening for colorectal cancer (Acute) Hemoccult x3 NEG CKD (chronic kidney disease) (Acute) Nonischemic cardiomyopathy (Acute[place] [facility] [place] Elevated plasma metanephrines (Acute) [facility] Nicotine use disorder (Chronic) Heart failure with reduced ejection fraction (Chronic) ECHO 11/01/2019 [facility] L[place]F 28% & mod MR; 02/2020 LVEF 44% Nephropathy (Acute) Hypertensive--with renal insufficiency (Creatinine 2.1) and non-nephrotic p roteinuria (439mg) Hypertension (Chronic) Medical History Flash pulmonary edema [facility] Left inguinal hernia ER eval 05/2020--referred to surgery, but pt didn't f/u & issue went away Paronychia (~05/2017) Surgical History History of cardiac cath [facility]--neg Family History Mother Breast cancer Father Unknown family medical history Social History Smoking/Tobacco Use Status: Current every day Tobacco: How many years used: 15 Quit status: considering quitting Smoking risk assessment performed?: Yes Alcohol Intake: current Alcohol Intake frequency: holidays/special occasions only Alcohol type: beer and wine Drug use: Rarely Substance use type: marijuana Adopted: No Caregiver/Support person: Yes Foster care: No Household members: family Housing: house Number of Children: 2 Communication Needs: Corrective Lenses Do you need help understanding health information?: Often current occupation: [employer] Sexually active: Yes Do you think of yourself as: straight/heterosexual Current gender identity: male Other: no siblings What is your relationship status?: Panel score (0-1 are the most socially isolated patients): 1 What type of physical activity do you participate in: walking Seatbelt use: always Drive intox or ride w/intox otr flatbed company truck driver: No Working smoke detector in home: Yes Fire extinguisher in home: Yes Carbon monox detector in home: Yes Do you feel safe at home: Yes Do you feel safe in your relationship?: Yes Exam Narrative Exam Narrative: 1.Const: Well-nourished, Well-developed, appearing stated age 2.Eyes: PERRL, no conjunctival injection, and symmetrical lids. 3.ENT: Atraumatic external nose and ears. Moist MM. Neck: Symmetric, trachea midline, No thyromegaly. 4.CVS: +S1/S2, No murmurs or gallops. Peripheral pulses 2+ and equal in all extremities. Brisk capillary refill in all extremities. 5.RESP: Labored respiratory effort, tachypneic, diffuse crackles throughout. 6.GI: Soft, Nontender/Nondistended, No hepatosplenomegaly. No guarding or rebound. 7.MSK: Normocephalic/Atraumatic, Extremities w/o deformity or ttp No cyanosis or clubbing, Normal movement of all extremities 8.Skin: Cold, clammy, and slightly ashen 9.Neuro: form coverer II-XII grossly intact. Sensation grossly intact, no focal neurologic deficits. 10.Psych: (AAO) x3. Anxious Course Vital Signs Vital signs: Vital Signs Temperature 36.4 C L 01/15/23 00:39 Pulse 131 H 01/15/23 00:39 Respiratory Rate 25 H 01/15/23 00:39 Blood Pressure 189/133 H 01/15/23 00:39 Pulse Oximetry 91 L 01/15/23 00:39 Temperature 36.4 C L 01/15/23 00:39 Temperature Source Temporal Artery Scan 01/15/23 00:39 Pulse 131 H 01/15/23 00:39 Respiratory Rate 25 H 01/15/23 00:39 Respiratory Effort Short of Breath, Labored, Drooling, Incrsd Work of Breathing 01/15/23 01:03 Respiratory Depth Shallow 01/15/23 01:03 Respiratory Pattern Tachypnea 01/15/23 01:03 Blood Pressure 189/133 H 01/15/23 00:39 Blood Pressure Position Sitting 01/15/23 00:39 Pulse Oximetry 91 L 01/15/23 00:39 Oxygen Delivery Method Bi-pap 01/15/23 00:39 Oxygen Flow Rate 0 01/15/23 00:39 Lab/Test Results Lab/Test Results: Laboratory Tests Range/Units 01/15/23 01/15/23 01/15/23 00:50 00:50 00:50 WBC (4.4-10.8) 10^3/uL 16.61 H RBC (4.36-5.78) 10^6/uL 5.04 Hgb (13.5-17.5) g/dL 15.0 Hct (40.0-50.0) % 44.4 MCV (80-95) fL 88 MCH (27.0-33.0) pg 29.8 MCHC (32.0-36.0) % 33.8 RDW (11.8-14.1) % 12.7 Plt Count (130-400) 10^3/uL 235 MPV (8.0-11.0) fL 10.2 Immature Gran % 1.0 Neutrophils % 67.4 Lymphocytes % 24.3 Monocytes % 3.7 Eosinophils % 2.9 Basophils % 0.7 Nucleated RBC % (0.0-0.3) % 0.0 Absolute Neutrophils (1.2-6.7) 10^3/uL 11.20 H Absolute Lymphocytes (1.2-3.4) 10^3/uL 4.04 H Absolute Monocytes (0.1-0.8) 10^3/uL 0.61 Absolute Eosinophils (0.0-0.7) 10^3/uL 0.48 Absolute Basophils (0.0-0.2) 10^3/uL 0.12 PT (9.3-11.0) sec 11.1 H INR (0.9-1.1) 1.1 APTT (21.5-31.9) sec 33.8 H VBG pH (7.31-7.41) 7.11 L* VBG pCO2 (41-51) mmHg 67 H* VBG pO2 mmHg 27 VBG HCO3 (23-28) mmol/L 21 L VBG Total CO2 (24-29) mmol/L 21 L VBG O2 Saturation % 35 VBG Base Excess (-2-3) mmol/L -8 L Critical Care Time Critical Care Time Critical Care Time: Yes Total Critical Care Time: 60 Attestation: Upon my evaluation, this patient had a high probability of imminent or life- threatening deterioration, which required my direct attention, intervention, and personal management. I have personally provided 60 minutes of critical care time exclusive of time spent on separately billable procedures. Time includes review of laboratory data, radiology results, discussion with consultants, and monitoring for potential decompensation. Interventions were performed as documented. POCUS Exam (ED) Limited Cardiac Exam DATE OF EXAM: 01/15/23 TIME OF EXAM: 01:28 PROVIDER THAT PERFORMED THE STUDY: Maximus Thorne IS THIS A REPEAT EXAM DURING THIS ENCOUNTER: no REASON FOR EXAM: Congestive heart failure and Dyspnea VISUALIZED STRUCTURES: Left atrium, Left ventricle, Right ventricle and Interventricular septum VIEW OBTAINED: Parasternal long-axis PERTINENT FINDINGS/IMPRESSION: LV dysfunction DIFFERENTIAL DIAGNOSES: Patient demonstrates an ejection fraction around 10 to 15%, notably dilated left ventricle. Exam complete
[2023-01-15 01:22] LABS: Troponin I 143 ng/L (<or=60)
--- NOTE | 2023-01-15 01:32 | NUR.NOTE ---
Nursing Note: Patient arrived on non-rebreather, O2 sat in 70s. Minimal history provided. Patient diaphoretic with significant difficulty breathing, speaking in one and two word sentences. Denying chest pain. Patient placed on BiPAP and given 2 duoneb treatments, work of breathing mildly improved with BiPAP. Two doses of 20mg furosemide IV administered, dickerson catheter placed. Patient started on nitrodrip at 100mcg/min and then increased to 200mcg/min, BP slowly improving.Patient needing frequent redirection with keeping BiPAP mask on.
[2023-01-15] MEDS: Furosemide 40 MG/4 ML VIAL IVP (01:45)
[2023-01-15 01:52] LABS: COVID-19 PCR Negative (Negative); Influenza A PCR Negative (Negative); Influenza B PCR Negative (Negative); RSV PCR Negative (Negative)
[2023-01-15 02:07] LABS: Source Nasopharynx
--- NOTE | 2023-01-15 02:41 | DI.VRAD_ITS ---
PROCEDURE INFORMATION: Exam: XR Chest Exam date and time: 01/15/2023 1:14 AM Age: 57 years old Clinical indication: Other: Chf. Hypoxic resp failure TECHNIQUE: Imaging protocol: Radiologic exam of the chest. Views: 1 view. COMPARISON: XR PORTABLE CHEST AP POST LINE 10/31/2019 10:41 PM FINDINGS: Lungs: Development of superimposed airspace opacification within the right mid to lower lung, a change when compared to the 10/31/2019 exam. Findings are suspicious for an acute airspace process. Pleural spaces: Unremarkable. No pleural effusion. No pneumothorax. Heart/Mediastinum: Unremarkable. No cardiomegaly. Bones/joints: Unremarkable. Other findings: Diffuse reticulonodular opacification. IMPRESSION: Development of superimposed airspace opacification within the right mid to lower lung, a change when compared to the 10/31/2019 exam. Findings are suspicious for an acute airspace process. Dictated and Authenticated by: Darrel Dean MD. Ordering:LADARIUS Stroud MD
--- NOTE | 2023-01-15 07:53 | NUR.NOTE ---
Nursing Note: Accessed patient chart to determine how many EKG orders were in the chart from the ED. There was an outstanding EKG in ordered status. There are no EKG's in the [employer] system that are outstanding. EKG order was deleted.
== END 2023-01-15 02:29 | disposition short-term general hospital (02) ==
PROVIDERS: Emergency Provider Student in an Organized Health Care Education/Training Program; PCP Nurse Practitioner Adult Health
DX: J96.00 Acute respiratory failure, unspecified whether with hypoxia or hypercapnia (principal); J81.0 Acute pulmonary edema; I13.0 Hypertensive heart and chronic kidney disease with heart failure and stage 1 through stage 4 chronic kidney disease, or unspecified chronic kidney disease; I50.9 Heart failure, unspecified; N18.9 Chronic kidney disease, unspecified; F17.200 Nicotine dependence, unspecified, uncomplicated; Z20.822 Contact with and (suspected) exposure to COVID-19
CPT/HCPCS: 36415; 51702; 80053; 82805; 87637; 93005; 93308; 94640; 96365; 96366; 96375; 99291; 71045; 83880; 84484; 85025; 85610; 85730; 93010; J1940; J1941; J7620

== ENCOUNTER 2023-01-30 15:19 | Outpatient (CLI) | payer MEDICAID, SELFPAY ==
[2023-01-30 08:09] LABS: Anion Gap 7.9 mmol/L (3-11); BUN 43 mg/dL (7-18); CO2 26.1 mmol/L (21.0-32.0); CREATININE 2.2 mg/dL (0.70-1.30); Calcium 8.3 mg/dL (8.5-10.1); Calculated LDL 83 mg/dL (<100); Chloride 106 mmol/L (98-107); Cholesterol 136 mg/dL (<200); Estimated GFR 33.87 (mL/min/1.73m2); Glucose 160 mg/dL (74-106); HDL Cholesterol 39 mg/dL (40-60); Potassium 4.1 mmol/L (3.5-5.1); Sodium 140 mmol/L (136-145); Triglyceride 70 mg/dL (<150)
== END 2023-01-30 15:20 | disposition home or self-care (01) ==
LOC: LBO 15:19
PROVIDERS: PCP Nurse Practitioner Adult Health; Visit Provider Nurse Practitioner Adult Health
DX: I10 Essential (primary) hypertension (principal); N18.4 Chronic kidney disease, stage 4 (severe); I42.8 Other cardiomyopathies
CPT/HCPCS: 36415; 80048; 80061

== ENCOUNTER 2023-04-24 08:14 | Outpatient (CLI) | payer MEDICAID, SELFPAY | END 2023-04-24 08:15 | disposition home or self-care (01) | LOC: DI.CARD 08:15 | PROVIDERS: PCP Nurse Practitioner Adult Health; Visit Provider Internal Medicine Cardiovascular Disease | DX: I42.9 Cardiomyopathy, unspecified (principal) | CPT/HCPCS: 93010 ==

== ENCOUNTER 2023-05-11 09:33 | Outpatient (CLI) | payer MEDICAID, SELFPAY ==
--- NOTE | 2023-05-11 09:30 | RT.EKG_ITS ---
APPROVED REPORT Exam: Resting ECG Reason for Exam: [facility] Patient Location: O HR:77 bpm ECG Measurements Heart Rate 77 AXIS VT 142 P 68 QRSd 88 QRS 45 QT 400 T 2 QTc 453 Conclusion Sinus rhythm...normal P axis, V-rate 50- [address]-T abnormalities Low voltage limb leads
== END 2023-05-11 09:34 | disposition home or self-care (01) ==
LOC: DI.CARD 09:36
PROVIDERS: PCP Nurse Practitioner Adult Health; Visit Provider Internal Medicine Cardiovascular Disease
DX: I42.8 Other cardiomyopathies (principal)
CPT/HCPCS: 93010

== ENCOUNTER → 2023-06-05 00:56 | Outpatient (CLI) | payer MEDICAID, SELFPAY ==
--- NOTE | 2023-06-05 06:30 | DI.US_ITS ---
APPROVED REPORT EXAM: Comprehensive 2D, Doppler, and color-flow Echocardiogram Patient Location: Out-Patient Yacht Master: Elieser Lew RDCS ([place]) Indications: reassess LVEF with controlled HTN, s/p resp failure Other Information Study Quality: Good Conclusion Normal left ventricular wall thickness and chamber size. Ejection fraction is 40 to 45% with global hypokinesis Normal right ventricular size and systolic function Both atria are normal in size Trileaflet aortic valve with trace regurgitation Mild mitral annular calcification. There is moderate mitral regurgitation Tricuspid valve with trace regurgitation. Right ventricular systolic pressure could not be estimated Compared to an echocardiogram from 2020, ejection fraction appears similar. Mitral regurgitation is now moderate, previously mild Wall motion Left Ventricle The left ventricle is normal size. Left ventricular systolic function is mildly decreased. Borderline concentric left ventricular hypertrophy. There is global hypokinesis of the left ventricle. There is no ventricular septal defect visualized. LVEF is 40-45%. Right Ventricle The right ventricle is normal size. The right ventricular systolic function is normal. Unable to asse ss PA pressure. Atria The left atrium size is normal. The right atrium size is normal. The interatrial septum is intact wit h no evidence for an atrial septal defect. Aortic Valve Aortic valve is grossly normal in structure. Aortic valve is trileaflet. There is no aortic valvular stenosis. Trace aortic regurgitation. Mitral Valve Mild mitral annular calcification. No evidence of mitral valve stenosis. Moderate mitral regurgitatio n. Tricuspid Valve The tricuspid valve is normal in structure. There is no tricuspid valve stenosis. Trace tricuspid reg urgitation. Pulmonic Valve The pulmonary valve is normal in structure. There is no pulmonic valvular stenosis. Mild pulmonic reg urgitation. Great Vessels The aortic root is normal in size. Ascending aorta is not well visualized. Aortic arch is not well vi sualized. IVC is normal in size and collapses >50% with inspiration. Pericardium There is no pericardial effusion. 2D Dimensions IVSD d PLAX 1.02 cm M: 0.6-1.2 Ao Root d 3.27 cm M: 3.1 - 3.7 LVPW d PLAX 0.96 cm M: 0.6 - 1.2 LVID d PLAX 5.63 cm M: 4.2 - 5.8 LVDs 4.51 cm M: 2.5 - 4.0 LV EF Teichholz 40.3 % FS 19.91 % LV EDV (Teich) 155.5 mL LV ESV (Teich) 92.8 mL Stroke Vol Index (Teich) 34.99 M-Mode TAPSE 2.62 cm (M/F) >1.7 Auto EF LV EDV A4C 185.4 mL LV EDV A2C 177.6 mL LV EDV BP 181.9 mL LV ESV A4C 111.9 mL LV ESV A2C 107.0 mL LV ESV BP 110.7 mL LVEF(%) A4C 39.6 % LVEF(%) A2C 39.7 % LVEF(%) BP 39.1 % LV SV A4C 73.5 ml LV SV A2C 70.6 ml LV SV BP 71.1 ml LV CO A4C 4.2 L/min LV CO A2C 4.1 L/min LV CO BP 4.2 L/min HR A4C 57.79 BPM HR A2C 57.77 BPM LV EDV Index (BP) LA Volume LA Length A4C 4.4 cm LA Length A2C LA Area A4C s 11.31 cm2 LA Area A2C s LA Vol A4C A-L 24.45 mL LA Vol A2C A-L LA Vol Biplane A-L LA Vol A4C MOD 24.8 mL LA Vol A2C MOD LA Vol BP MOD RA Volume RA Area A4C 6.9 cm2 RA ESV A4C (A-L) 11.0mL RA Vol/BSA A4C A-L RA Length A4C 3.7 cm RA ESV A4C (MOD) 10.8mL LV Diastology MV E' medial 0.058 (>0.07 m/s) MV E Vmax 0.79 (0.4-1.3 m/s) MV E/E' MED 13.60 (<14) MV A Vmax 1.05 (0.4-1.3 m/s) MV E' lateral 0.048 (>0.1 m/s) E/A Ratio 0.8 MV E/E' LAT 16.47 (<14) MV E' Average 0.053 m/s MV E/E'(average) 14.90 Aortic Valve AoV Vmax 1.05 m/s LVOT Vmax 0.96 m/s AoV Peak Grad 4.4 mmHg LVOT Peak Grad 3.7 mmHg AoV Area (Vmax) 2.63 cm2 LVOT VTI 0.192 m AoV VTI 0.235 m LVOT Mean Grad 2.0 mmHg AoV Mean Francis. 0.73 m/s LVOT SV 55.44 mL AoV Mean Grad 2.4 mmHg LVOT Diam s 1.90 cm AoV Area (VTI) 2.36 cm2 Velocity Ratio 0.91 Mitral Valve MV DT 193 (160-240 msec) MR Vmax 6.64 m/s MV Vmax TIPS 1.10 m/s MR VTI 2.236 m MV Mean Grad 1.7 (<2mmHg) MR Peak Grad 176.1 mmHg MV VTI 0.374 m MR Mean Grad 105.0 mmHg MR PISA Radius 0.79 cm MR Aliasing Velocity 0.30 m/s Pulmonary Valve PV Vmax 0.90 (0.5-1.5 m/s) RVOT Vmax 0.57 m/s PV Peak Grad 3.3 mmHg RVOT Peak Gr. 1.3 mmHg PV Mean Francis 0.58 m/s RVOT VTI 0.117 m PV Mean Grad 1.6 mmHg RVOT Mean Gr. 0.7 mmHg
== END ==
PROVIDERS: PCP Nurse Practitioner Adult Health; Visit Provider Nurse Practitioner Adult Health
DX: I10 Essential (primary) hypertension (principal); I50.20 Unspecified systolic (congestive) heart failure
CPT/HCPCS: 93306

== ENCOUNTER 2024-02-22 16:48 | Outpatient (REF) | payer MEDICAID, SELFPAY ==
[2024-02-22 20:02] LABS: Abs Immature Grans 0.02 10^3/uL (0.0-0.06); Absolute Basophil Count 0.06 10^3/uL (0.0-0.2); Absolute Eosinophil Count 0.41 10^3/uL (0.0-0.7); Absolute Lymphocyte Count 1.33 10^3/uL (1.2-3.4); Absolute Monocyte Count 0.68 10^3/uL (0.1-0.8); Absolute Neutrophil Count 3.88 10^3/uL (1.2-6.7); Basophils % 0.9 %; Eosinophils % 6.4 %; HGB 11.8 g/dL (13.5-17.5); Immature Grans % 0.3 %; Lymphocytes % 20.8 %; MCH 30.1 pg (27.0-33.0); MCHC 33.7 % (32.0-36.0); MCV 89 fL (80-95); MPV 11.2 fL (8.0-11.0); Monocytes % 10.7 %; Neutrophils % 60.9 %; Platelet Count 122 10^3/uL (130-400); RBC 3.92 10^6/uL (4.36-5.78); RDW 12.1 % (11.8-14.1); RDW-SD 39.5 fL; WBC 6.38 10^3/uL (4.4-10.8)
[2024-02-22 20:06] LABS: ALT 28 U/L (16-63); AST 29 U/L (15-37); Albumin 3.6 g/dL (3.4-5.0); Alkaline Phosphatase 69 U/L (46-116); Anion Gap 9.1 mmol/L (3-11); BUN 51 mg/dL (7-18); Bilirubin, Total 0.4 mg/dL (0.2-1.0); CO2 26.9 mmol/L (21.0-32.0); CREATININE 2.3 mg/dL (0.70-1.30); Calcium 8.2 mg/dL (8.5-10.1); Chloride 101 mmol/L (98-107); Estimated GFR 31.91 (mL/min/1.73m2); Glucose 93 mg/dL (74-106); Potassium 5.3 mmol/L (3.5-5.1); Sodium 137 mmol/L (136-145); Total Protein 6.9 g/dL (6.4-8.2)
== END 2024-02-22 16:49 | disposition home or self-care (01) ==
LOC: NCHCN 16:48
PROVIDERS: PCP Nurse Practitioner Adult Health; Visit Provider Nurse Practitioner Family
DX: R22.42 Localized swelling, mass and lump, left lower limb (principal)
CPT/HCPCS: 80053; 85025

== ENCOUNTER → 2024-02-23 10:25 | Outpatient (CLI) | payer MEDICAID, SELFPAY ==
--- NOTE | 2024-02-23 | DI.US_ITS ---
Exam(s) US LOWER EXTREMITY VENOUS LT EXAM: US LOWER EXTREMITY VENOUS LT CLINICAL HISTORY: Lt lower leg swelling, R22.42 TECHNIQUE: Left lower extremity venous ultrasound performed using grayscale, color-flow, and spectra l Doppler analysis. COMPARISON: No exams were available for comparison FINDINGS: The left common femoral and proximal and mid femoral veins demonstrate normal compressibility, augmen tation, and color Doppler. There is hypoechoic occlusive thrombus beginning in the distal femoral vei n extending distally to include the popliteal vein and the paired posterior tibial and peroneal veins . The greater saphenous vein is patent. There is mild edema seen in the soft tissues. IMPRESSION: There is an extensive left lower extremity deep venous thrombus beginning in the distal femoral vein and extending distally, to include, the popliteal vein and the paired posterior tibialis and peroneal veins. DATA REPOSITORY:
== END ==
PROVIDERS: PCP Nurse Practitioner Adult Health; Visit Provider Nurse Practitioner Family
DX: I82.412 Acute embolism and thrombosis of left femoral vein (principal)
CPT/HCPCS: 93971

== ENCOUNTER 2024-03-14 05:52 | Outpatient (CLI) | payer MEDICAID, SELFPAY ==
[2024-03-14 11:58] LABS: ALT 25 U/L (16-63); AST 21 U/L (15-37); Albumin 3.6 g/dL (3.4-5.0); Alkaline Phosphatase 76 U/L (46-116); Anion Gap 8.9 mmol/L (3-11); BUN 46 mg/dL (7-18); Bilirubin, Total 0.7 mg/dL (0.2-1.0); CO2 27.1 mmol/L (21.0-32.0); CREATININE 2.7 mg/dL (0.70-1.30); Calcium 9.1 mg/dL (8.5-10.1); Chloride 104 mmol/L (98-107); Estimated GFR 26.33 (mL/min/1.73m2); Glucose 100 mg/dL (74-106); Potassium 4.8 mmol/L (3.5-5.1); Sodium 140 mmol/L (136-145); Total Protein 7.7 g/dL (6.4-8.2)
[2024-03-18 13:46] LABS: Renin Activity, Plasma 9.5 ng/mL/h
[2024-03-19 01:21] LABS: Aldosterone, P 8.8 ng/dL (<=21)
== END 2024-03-14 05:53 | disposition home or self-care (01) ==
PROVIDERS: PCP Nurse Practitioner Adult Health; Visit Provider Emergency Medicine
DX: I1A.0 Resistant hypertension (principal)
CPT/HCPCS: 36415; 80053; 82088; 84244

== ENCOUNTER 2024-07-21 08:57 | Outpatient (CLI) | payer MEDICAID, SELFPAY ==
--- NOTE | 2024-07-21 09:30 | DI.US_ITS ---
APPROVED REPORT EXAM: Comprehensive 2D, Doppler, and color-flow Echocardiogram Patient Location: Out-Patient Product Management Specialist: Angélica Penaloza RDCS (AE) Indications: Check LV function, Nonischemic cardiomyopathy Other Information Study Quality: Adequate Conclusion Normal left ventricular wall thickness and chamber size. Ejection fraction is 55%. Wall motion is n ormal Normal right ventricular size and function Mildly enlarged left atrium. Right atrial size is normal. Small PFO noted Mildly thickened mitral leaflets with moderate regurgitation Wall motion Left Ventricle The left ventricle is normal size. The left ventricular systolic function is normal. The left ventric ular ejection fraction is within the normal range. There is normal left ventricular wall thickness. T here is normal LV segmental wall motion. There is no ventricular septal defect visualized. LVEF is 55 %. Right Ventricle The right ventricle is normal size. The right ventricular systolic function is normal. Atria Left atrium is mildly dilated. The right atrium size is normal. Doppler suggests right to left intera trial shunt. Aortic Valve The aortic valve is normal in structure. Aortic valve is trileaflet. There is no aortic valvular sten osis. No aortic regurgitation is present. Mitral Valve Mildly thickened mitral leaflets No evidence of mitral valve stenosis. Moderate mitral regurgitation. Tricuspid Valve The tricuspid valve is normal in structure. There is no tricuspid valve stenosis. Trace tricuspid reg urgitation. Unable to assess PA pressure. Pulmonic Valve The pulmonary valve is normal in structure. There is no pulmonic valvular stenosis. There is no pulmo mat valvular regurgitation. Great Vessels The aortic root is normal in size. The ascending aorta is normal in size. Aortic arch is not well vis ualized. IVC is normal in size and collapses >50% with inspiration. Pericardium There is no pericardial effusion. 2D Dimensions IVSD d PLAX 1.04 cm M: 0.6-1.2 Ao Root d 3.10 cm M: 3.1 - 3.7 LVPW d PLAX 1.07 cm M: 0.6 - 1.2 Ao Asc Diam d 3.19 cm M: 2.6 - 3.4 LVID d PLAX 5.14 cm M: 4.2 - 5.8 LVDs 3.74 cm M: 2.5 - 4.0 LV EF Teichholz 52.7 % FS 27.23 % LV EDV (Teich) 125.9 mL LV ESV (Teich) 59.6 mL M-Mode TAPSE 2.13 cm (M/F) >1.7 Auto EF LV EDV A4C 141.2 mL LV EDV A2C 147.5 mL LV EDV BP 146.1 mL LV ESV A4C 63.7 mL LV ESV A2C 67.4 mL LV ESV BP 65.7 mL LVEF(%) A4C 54.9 % LVEF(%) A2C 54.3 % LVEF(%) BP 55.1 % LV SV A4C 77.5 ml LV SV A2C 80.1 ml LV SV BP 80.4 ml LV CO A4C 4.3 L/min LV CO A2C 4.6 L/min LV CO BP 4.5 L/min HR A4C 55.56 BPM HR A2C 57.97 BPM LV EDV Index (BP) LA Volume LA Length A4C 4.8 cm LA Length A2C 5.1 cm LA Area A4C s 17.79 cm2 LA Area A2C s 19.52 cm2 LA Vol A4C A-L 55.56 mL LA Vol A2C A-L 63.51 mL LA Vol Biplane A-L 61.0 mL LA Vol/BSA A4C A-L LA Vol/BSA A2C A-L LA Vol/BSA BP A-L 64.2 mL/m2 LA Vol A4C MOD 51.9 mL LA Vol A2C MOD 55.4 mL LA Vol BP MOD 54.6 mL RA Volume RA Area A4C 10.6 cm2 RA ESV A4C (A-L) 25.6mL RA Vol/BSA A4C A-L RA Length A4C 3.7 cm RA ESV A4C (MOD) 23.5mL LV Diastology MV E' medial 0.093 (>0.07 m/s) MV E Vmax 0.90 (0.4-1.3 m/s) MV E/E' MED 9.66 (<14) MV A Vmax 1.15 (0.4-1.3 m/s) E/A Ratio 0.8 Aortic Valve AoV Vmax 1.31 m/s LVOT Vmax 0.96 m/s AoV Peak Grad 6.9 mmHg LVOT Peak Grad 3.7 mmHg AoV Area (Vmax) 2.60 cm2 LVOT VTI 0.203 m AoV VTI 0.291 m LVOT Mean Grad 1.7 mmHg AoV Mean Francis. 0.85 m/s LVOT SV 72.27 mL AoV Mean Grad 3.4 mmHg LVOT Diam s 2.10 cm AoV Area (VTI) 2.49 cm2 AV Regurg Peak Gr. 6.86 mmHg Velocity Ratio 0.73 Mitral Valve MV DT 324 (160-240 msec) MV Vmax TIPS 1.14 m/s MV Mean Grad 1.8 (<2mmHg) MV VTI 0.400 m Pulmonary Valve PV Vmax 0.91 (0.5-1.5 m/s) RVOT Vmax 0.84 m/s PV Peak Grad 3.3 mmHg RVOT Peak Gr. 2.8 mmHg PV Mean Francis 0.66 m/s RVOT VTI 0.174 m PV Mean Grad 1.9 mmHg RVOT Mean Gr. 1.5 mmHg Tricuspid Valve RA Pressure 3.00 mmHg TV S' 0.15 m/s
== END 2024-07-21 09:17 ==
LOC: DI 08:57
PROVIDERS: PCP Nurse Practitioner Adult Health; Visit Provider Internal Medicine Cardiovascular Disease
DX: I42.8 Other cardiomyopathies (principal)
CPT/HCPCS: 93306

== ENCOUNTER 2024-08-01 03:01 | Outpatient (CLI) | payer MEDICAID, SELFPAY ==
[2024-08-01 07:58] LABS: ALT 28 U/L (16-63); AST 26 U/L (15-37); Albumin 3.5 g/dL (3.4-5.0); Alkaline Phosphatase 79 U/L (46-116); Anion Gap 9.6 mmol/L (3-11); BUN 46 mg/dL (7-18); Bilirubin, Total 0.55 mg/dL (0.2-1.0); CO2 25.4 mmol/L (21.0-32.0); CREATININE 2.3 mg/dL (0.70-1.30); Calcium 8.7 mg/dL (8.5-10.1); Chloride 108 mmol/L (98-107); Estimated GFR 31.71 (mL/min/1.73m2); Glucose 98 mg/dL (74-106); Potassium 4.9 mmol/L (3.5-5.1); Sodium 143 mmol/L (136-145); Total Protein 7.4 g/dL (6.4-8.2)
== END 2024-08-01 03:02 | disposition home or self-care (01) ==
LOC: LBO 03:01
PROVIDERS: PCP Nurse Practitioner Adult Health; Visit Provider Internal Medicine Cardiovascular Disease
DX: N18.4 Chronic kidney disease, stage 4 (severe) (principal)
CPT/HCPCS: 36415; 80053

== ENCOUNTER 2024-08-09 07:45 | Outpatient (CLI) | payer MEDICAID, SELFPAY ==
--- NOTE | 2024-08-09 07:45 | RT.EKG_ITS ---
APPROVED REPORT Exam: Resting ECG Reason for Exam: CMP, HTN Patient Location: O HR:59 bpm ECG Measurements Heart Rate 59 AXIS AZ 154 P 74 QRSd 88 QRS 54 QT 451 T 25 QTc 447 Conclusion Sinus rhythm...normal P axis, V-rate 50- 99 Borderline low voltage, extremity leads...all extremity leads <0.6mV
== END 2024-08-09 07:46 | disposition home or self-care (01) ==
LOC: DI.CARD 07:47
PROVIDERS: PCP Nurse Practitioner Adult Health; Visit Provider Internal Medicine Cardiovascular Disease
DX: I50.20 Unspecified systolic (congestive) heart failure (principal); I1A.0 Resistant hypertension
CPT/HCPCS: 93010

== ENCOUNTER 2024-12-08 14:43 | Outpatient (REF) | payer MEDICAID, SELFPAY ==
[2024-12-08 20:01] LABS: ALT 22 U/L (16-63); AST 24 U/L (15-37); Albumin 3.4 g/dL (3.4-5.0); Alkaline Phosphatase 80 U/L (46-116); Anion Gap 7.8 mmol/L (3-11); BUN 44 mg/dL (7-18); Bilirubin, Total 0.4 mg/dL (0.2-1.0); CO2 29.2 mmol/L (21.0-32.0); CREATININE 2.7 mg/dL (0.70-1.30); Calcium 9.1 mg/dL (8.5-10.1); Chloride 105 mmol/L (98-107); Estimated GFR 26.16 (mL/min/1.73m2); Glucose 110 mg/dL (74-106); Potassium 4.6 mmol/L (3.5-5.1); Sodium 142 mmol/L (136-145); Total Protein 7.4 g/dL (6.4-8.2)
[2024-12-08 20:30] LABS: Calculated LDL 169 mg/dL (<100); Cholesterol 258 mg/dL (<200); HDL Cholesterol 39 mg/dL (>or=40); Triglyceride 254 mg/dL (<150)
== END 2024-12-08 14:44 | disposition home or self-care (01) ==
LOC: LBN 14:43
PROVIDERS: PCP Nurse Practitioner Adult Health; Visit Provider Nurse Practitioner Adult Health
DX: I10 Essential (primary) hypertension (principal); N18.4 Chronic kidney disease, stage 4 (severe)
CPT/HCPCS: 80053; 80061

== ENCOUNTER 2025-02-16 03:05 | Outpatient (CLI) | payer MEDICAID, SELFPAY ==
[2025-02-16 08:12] LABS: Calculated LDL 217 mg/dL (<100); Cholesterol 279 mg/dL (<200); HDL Cholesterol 39 mg/dL (>or=40); Triglyceride 118 mg/dL (<150)
== END 2025-02-16 03:06 | disposition home or self-care (01) ==
LOC: LBO 03:05
PROVIDERS: PCP Family Medicine; Visit Provider Nurse Practitioner Adult Health
DX: I42.8 Other cardiomyopathies (principal); E78.5 Hyperlipidemia, unspecified
CPT/HCPCS: 36415; 80061

== ENCOUNTER 2025-08-15 03:39 | Outpatient (CLI) | payer MEDICAID, SELFPAY ==
[2025-08-15 10:49] LABS: Anion Gap 7.1 mmol/L (3-11); BUN 37 mg/dL (9-23); CO2 29.9 mmol/L (20.0-31.0); Calcium 9.0 mg/dL (8.3-10.6); Chloride 105 mmol/L (98-107); Glucose 92 mg/dL (74-106); Potassium 5.0 mmol/L (3.5-5.1); Sodium 142 mmol/L (136-145)
== END 2025-08-15 03:40 | disposition home or self-care (01) ==
LOC: LBO 03:39
PROVIDERS: PCP Family Medicine; Visit Provider Family Medicine
DX: N18.4 Chronic kidney disease, stage 4 (severe) (principal)
CPT/HCPCS: 36415; 80048